=== PATIENT | female | born 1990 | race Caucasian/White ===

== ENCOUNTER 2018-03-21 20:23 | Emergency (ER) | END 2018-03-22 04:03 | disposition home or self-care (01) ==

== ENCOUNTER 2018-09-05 02:12 | Inpatient (IN) | payer OTHER ==
[~2018-09-05] VITALS: Ht 170.2 cm; Wt 93.7 kg
[~2018-09-05 02:12] MED LIST: PREN1TAB49 PO
[2018-09-05 02:30] VITALS: BP 131/77; PULSE 99; RESP 18; Ht 170.2 cm; Wt 93.7 kg
[2018-09-05] MEDS ORDERED: LACTATED RINGER'S 1,000 ML IV PRN (03:15)
[2018-09-05] MEDS ORDERED: LACTATED RINGER'S 1,000 ML IV SCH (03:15)
[2018-09-05] MEDS ORDERED: MISOPROSTOL 200 MCG TAB PR PRN ×2 (03:30→10:00)
[2018-09-05] MEDS ORDERED: OXYTOCIN 30 UNITS/LR 500 ML IV PRN ×2 (03:30→10:00)
[2018-09-05] MEDS ORDERED: METHYLERGONOVINE 0.2 MG INJ IM PRN (03:30)
[2018-09-05] MEDS ORDERED: CARBOPROST 250 MCG INJ IM PRN ×2 (03:30→10:00)
[2018-09-05] MEDS ORDERED: BUTORPHANOL 2 MG INJ IV PRN (03:30)
[2018-09-05] MEDS ORDERED: LIDOCAINE 1% (MPF) 30 ML INJ INJ PRN (03:30)
[2018-09-05] MEDS ORDERED: IBUPROFEN 600 MG TAB PO PRN (03:30)
[2018-09-05] MEDS ORDERED: AMPICILLIN 2 GM/NS (PMX) 100 ML IV ONE (03:30)
[2018-09-05] MEDS ORDERED: OXYTOCIN 30 UNITS/LR 500 ML IV SCH ×2 (03:30)
[2018-09-05] MEDS ORDERED: FENTAnyl 2MCG/ML-ROPIV 0.2% 100 ML ONE (04:06)
[2018-09-05] MEDS ORDERED: FENTAnyl 50 MCG/ML VIAL ONE (04:06)
[2018-09-05] MEDS ORDERED: NALOXONE (0.4 MG/ML) INJ IV PRN (07:30)
[2018-09-05] MEDS ORDERED: FENTAnyl 2MCG/ML-ROPIV 0.2% 100 ML BAG EPI SCH (07:30)
[2018-09-05] MEDS ORDERED: AMPICILLIN 1 GM/NS (PMX) 50 ML IV SCH (07:30)
--- NOTE | 2018-09-05 09:35 | HP ---
Date/Time of Note Date/Time of Note DATE: 09/05/18 TIME: 09:33 OB - History Hx of Present Free Text/Dictation 27 YO with EDC 09/02/2018 and IUP at 40.3 days who was admitted in active labor. Care: Good Care Ultrasounds: Normal mid trimester US Obstetrical Complications: None Medical Complications: None Past Family/Social History * Past Medical, Surgical, Family and Obstetric Histories reviewed from chart. OB Admission Exam Vital Signs Vital Signs Vital Signs Date Temp Pulse Resp B/P (MAP) Pulse Ox O2 O2 Flow FiO2 Time Delivery Rate 09/05/18 98.2 99 18 131/77 Room Air 02:30 (95) Physical Exam HEENT: WNL Heart: Rhythm Normal Lungs: Clear, Equal Abdomen: WNL Extremities: Normal Reflexes: Normal Cervical Dilatation: 10cm Effacement: 100% Last 72 hours Lab Results CBC & BMP 09/05/18 04:17 OB Assessment/Plan Reason for admission: active labor Plan: Expectant Management ATTILA KEENE MD Sep 05, 2018 09:35
[2018-09-05] MEDS: LACTATED RINGER'S 1,000 ML IV* SCH ×2 (09:37→17:37)
--- NOTE | 2018-09-05 09:37 | LDN ---
Date/Time of Note Date/Time of Note DATE: 09/05/18 TIME: 09:35 Delivery Summary 27 YO with EDC 09/02/2018 and IUP at 40.3 days s/p of viable male infant. placenta delivered intact and spontaneously. Placenta Delivered: Spontaneously Meconium: none Episiotomy: No Perineal laceration: 0 Anesthesia type: Epidural Estimated blood loss: 300 Sponge & Needle done & correct: Yes All needle counts correct: Yes Any foreign bodies felt in the: No Delivery Information Sex Infant Sex: male Apgars 1 Minute: 8 5 Minute: 9 Suctioning Nose & mouth suctioned at fe: No Delee suction performed: No Umbilical Cord Umbilical cord with: 3 Vessels Cord presentations: nuchal cord Nuchal cord present X: 1 Cord Blood was obtained: Yes Mother & Baby Disposition Disposition Mom & Baby to Maternity; Good: Yes ATTILA KEENE MD Sep 05, 2018 09:37
[2018-09-05] MEDS ORDERED: LANOLIN HPA 1 PKT TOP PRN (10:00)
[2018-09-05] MEDS ORDERED: DIBUCAINE 1% 30 GM OINT TOP PRN (10:00)
[2018-09-05] MEDS ORDERED: BENZOCAINE 20% 56 ML SPRAY TOP PRN (10:00)
[2018-09-05] MEDS ORDERED: MAGNESIUM HYDROXIDE 30ML CUP PO PRN (10:00)
[2018-09-05] MEDS ORDERED: DIPHENHYDRAMINE 50 MG INJ IV PRN (10:00)
[2018-09-05] MEDS ORDERED: ONDANSETRON 4 MG TAB PO PRN (10:00)
[2018-09-05] MEDS ORDERED: SENNA/DOCUSATE NA (8.6MG/50MG) TAB PO PRN (10:00)
[2018-09-05] MEDS ORDERED: ONDANSETRON 4 MG INJ IV PRN (10:00)
[2018-09-05] MEDS ORDERED: DIPHENHYDRAMINE 25 MG CAP PO PRN (10:00)
[2018-09-05] MEDS ORDERED: NA PHOSPHATE/BIPHOS 133 ML ENEMA PR PRN (10:00)
[2018-09-05] MEDS ORDERED: HYDROCODONE/APAP (5/325) TAB PO PRN ×2 (10:00)
[2018-09-05] MEDS ORDERED: WITCH HAZEL/GLYCERIN PAD PR PRN (10:00)
[2018-09-05 11:15] VITALS: BP 120/56; PULSE 71; RESP 18
[2018-09-05] MEDS: IBUPROFEN 600 MG TAB PO SCH ×2 (12:02→17:47)
[2018-09-05 16:00] VITALS: BP 113/67; PULSE 85; RESP 16
--- NOTE | 2018-09-05 18:19 | NUR ---
EOSS: VSS. PT VOIDED X1. DUE TO VOID X1 MORE. GOOD BONDING SEEN WITH THE BABY. BABY PUT SKIN TO SKIN SO BABY WILL WAKE UP TO BREAST FEED. WORKING WITH PT. IV DC'D.
[2018-09-05 20:00] VITALS: BP 118/69; PULSE 82; RESP 19
[2018-09-06] MEDS: SENNA/DOCUSATE NA (8.6MG/50MG) TAB PO SCH ×3 (00:01→21:05)
[2018-09-06] MEDS: IBUPROFEN 600 MG TAB PO SCH ×5 (00:01→23:17)
[2018-09-06 04:15] VITALS: BP 113/65; PULSE 73; RESP 19
[2018-09-06 07:10] VITALS: BP 101/52; PULSE 65; RESP 17
--- NOTE | 2018-09-06 11:06 | DS ---
Date/Time of Note Date/Time of Note DATE: 09/06/18 TIME: 11:05 Obstetrical Discharge Record Final Diagnosis Final Diagnosis: Term delivered Vaginal Delivery Obstetrical Delivery: Spontaneous Complications Augmentation: Yes Induction: Yes Rupture of Membranes: No Condition on Discharge Physical Assessment Voiding: Yes Bowel Movement: Yes Breast: Soft, non-tender, Filling Fundus: Firm Abdomen and Incision: soft, not tender Calf Tenderness: No Patient Condition: Good ATTILA KEENE MD Sep 06, 2018 11:06
[2018-09-06 15:30] VITALS: BP 116/53; PULSE 85; RESP 16
--- NOTE | 2018-09-06 17:38 | NUR ---
E.O.S.S. PATIENT IS STABLE, FUNDUS FIRM. LOCHIA IS SMALL, AMBULATING, VOIDING, BONDING WITH THE BABY, WELL, MOVING TOWARD OUTCOMES.
[2018-09-06 20:00] VITALS: BP 121/60; PULSE 82; RESP 19
[2018-09-07 04:00] VITALS: BP 114/56; PULSE 67; RESP 18
[2018-09-07] MEDS: IBUPROFEN 600 MG TAB PO SCH (05:29)
--- NOTE | 2018-09-07 06:44 | NUR ---
EOSS: PATIENT IN STABLE CONDITION. AMBULATING WELL AND VOIDING WELL. PATIENT HAS PASSED BM. FUNDUS IS FIRM WITH SCANT AMOUNT OF LOCHIA. BONDING WELL WITH . WELL. PATIENT IS AFEBRILE.
[2018-09-07 08:00] VITALS: BP 126/60; PULSE 81; RESP 18
[2018-09-07] MEDS: SENNA/DOCUSATE NA (8.6MG/50MG) TAB PO SCH (09:00)
[2018-09-07] MEDS ORDERED: DIPHTH/TET/ACEL PERTUSS (ADULT) 0.5 ML VIAL IM* ONE (09:00)
[2018-09-07] MEDS ORDERED: MEASLES,MUMPS,RUBELLA VACCINE INJ SC* ONE (09:00)
[2018-09-07] MEDS ORDERED: VARICELLA VACCINE LIVE/PF 1,350 UNIT/0.5 ML ML SC* ONE (09:00)
--- NOTE | 2018-09-07 11:43 | NUR ---
pt dc'd to home via wheelchair with infant per dr orders in stable condition
== END 2018-09-07 11:45 | disposition home or self-care (01) | DRG 807 ==
LOC: OBT 02:12 → L-D 02:55 → PP1 11:00
PROVIDERS: ADMIT Specialist; ATTEND Specialist
PROC: 10E0XZZ Delivery of Products of Conception, External Approach (ICD-10-PCS; principal; 2018-09-05)
DX: O69.81X0 Labor and delivery complicated by cord around neck, without compression, not applicable or unspecified (principal); Z37.0 Single live birth; Z3A.40 40 weeks gestation of pregnancy
CPT/HCPCS: 62319; 85025; 85610; 85730; 86592; 86850; 86900; 86901; 87340; J0290; J2590; J3010; J7120